=== PATIENT | female | born 1960 | race Caucasian/White ===

== ENCOUNTER 2022-01-08 08:00 | Day surgery (SDC) | payer OTHER, SELFPAY ==
[2022-01-01 09:04] VITALS: BMI 32.5
--- NOTE | 2022-01-04 13:00 | HO.ANESPROP2 ---
Documented by User: Radha Patterson NP 01/04/22 13:02 HPI - Anesthesia Eval Consult details Narrative: 61yo F for Upper Endoscopy and [facility] Past Medical History Medical History (Updated 01/01/22 @ 08:56 by Yvette Shoemaker RN) Arthritis COVID-19 vaccine series completed Elevated cholesterol GERD (gastroesophageal reflux disease) Pre-diabetes Surgical History Surgical History H/O colonoscopy History of esophagogastroduodenoscopy (EGD) Hx of cholecystectomy Hx of foot surgery Hx of tonsillectomy Social History Social History Are you a primary career and technology education teacher to a significant other at home: No Do you presently have visiting nurse or other home services: No Patient Tobacco Use Status: Former Tobacco user Quit Date: 2001 Tobacco use type: Cigarette Use of substances other than those prescribed or required for medical reasons: No Have you been hit, kicked, punched, or otherwise hurt by someone within the past year? If so, by whom?: No Are you DNR?: No Advance Directives Information Provided: Yes (brochure mailed) Advance Directives on File: No Recently lost weight without trying: No Eating poorly because of decreased appetite: No Nutrition Risks: No Nutritional Risk Poor oral hygiene: No Meds Allergies Allergy/AdvReac Type Severity Reaction Status Date / Time codeine AdvReac Intermediate Nausea Verified 01/01/22 08:54 Home Medications Medication Instructions Recorded Confirmed Last Taken Type apple cider vinegar 300 mg tablet 300 mg PO DAILY 01/01/22 01/01/22 Unknown History ascorbic acid (vitamin C) 500 mg 500 mg PO DAILY 01/01/22 01/01/22 Unknown History tablet (Vitamin C) atorvastatin 20 mg tablet 1 tab PO BEDTIME 01/01/22 01/01/22 Unknown History cholecalciferol (vitamin D3) 25 25 mcg PO DAILY 01/01/22 01/01/22 Unknown History mcg (1,000 unit) capsule (Vitamin D3) coenzyme Q10 100 mg capsule 300 mg PO DAILY 01/01/22 01/01/22 Unknown History (CoQ-10) cranberry 400 mg capsule 400 mg PO DAILY 01/01/22 01/01/22 Unknown History lactobacillus comb no.10 20 20,000 mmu cells PO DAILY 01/01/22 01/01/22 Unknown History billion cell capsule (Probiotic) melatonin 5 mg tablet 5 mg PO BEDTIME 01/01/22 01/01/22 Unknown History pantoprazole 40 mg tablet,delayed 1 tab PO BEDTIME 01/01/22 01/01/22 Unknown History release vitamin E 400 unit capsule 400 unit PO DAILY 01/01/22 01/01/22 Unknown History Exam Exam Date and Time: January 04, 2022 1300 Height,Weight and Vital Signs: Height 5 ft 7 in Weight 94.347 kg Assessment and Plan Assessment Anesthesia Assessment: Chart Reviewed Documented by User: Felicia Arriola MD 01/08/22 08:54 [facility] Past Medical History Medical History (Updated 01/01/22 @ 08:56 by Yvette Shoemaker RN) Arthritis COVID-19 vaccine series completed Elevated cholesterol GERD (gastroesophageal reflux disease) Pre-diabetes Functional capacity: independent ambulation Patient : No Family History Family history of problems with anesthesia: No Surgical History Surgical History H/O colonoscopy History of esophagogastroduodenoscopy (EGD) Hx of cholecystectomy Hx of foot surgery Hx of tonsillectomy History of Problems with Anesthesia: No Social History Social History Are you a primary career and technology education teacher to a significant other at home: No Do you presently have visiting nurse or other home services: No Patient Tobacco Use Status: Former Tobacco user Quit Date: 2001 Tobacco use type: Cigarette Use of substances other than those prescribed or required for medical reasons: No Have you been hit, kicked, punched, or otherwise hurt by someone within the past year? If so, by whom?: No Are you DNR?: No Advance Directives Information Provided: Yes (brochure mailed) Advance Directives on File: No Recently lost weight without trying: No Eating poorly because of decreased appetite: No Nutrition Risks: No Nutritional Risk Poor oral hygiene: No Meds Allergies Allergy/AdvReac Type Severity Reaction Status Date / Time codeine AdvReac Intermediate Nausea Verified 01/01/22 08:54 Home Medications Medication Instructions Recorded Confirmed Last Taken Type apple cider vinegar 300 mg tablet 300 mg PO DAILY 01/01/22 01/01/22 Unknown History ascorbic acid (vitamin C) 500 mg 500 mg PO DAILY 01/01/22 01/01/22 Unknown History tablet (Vitamin C) atorvastatin 20 mg tablet 1 tab PO BEDTIME 01/01/22 01/01/22 Unknown History cholecalciferol (vitamin D3) 25 25 mcg PO DAILY 01/01/22 01/01/22 Unknown History mcg (1,000 unit) capsule (Vitamin D3) coenzyme Q10 100 mg capsule 300 mg PO DAILY 01/01/22 01/01/22 Unknown History (CoQ-10) cranberry 400 mg capsule 400 mg PO DAILY 01/01/22 01/01/22 Unknown History lactobacillus comb no.10 20 20,000 mmu cells PO DAILY 01/01/22 01/01/22 Unknown History billion cell capsule (Probiotic) melatonin 5 mg tablet 5 mg PO BEDTIME 01/01/22 01/01/22 Unknown History pantoprazole 40 mg tablet,delayed 1 tab PO BEDTIME 01/01/22 01/01/22 Unknown History release vitamin E 400 unit capsule 400 unit PO DAILY 01/01/22 01/01/22 Unknown History Exam Airway Mallampati Class: II TM Dist: >3cm Neck ROM: Full Heart: RRR Lungs: CTA Assessment and Plan Final Anesthetic Review Family History of Problems with Anesthesia: No History of Problems with Anesthesia: No ASA Class: II Final Preanesthetic Review: No Changes in Pt Med Stat, Meds/Allgs Chart Reviewed, Consent Obtained/Reviewed and Anes Risks/Benef Reviewed Patient Risk: Low Procedure Risk: Low Anesthetic Plan Anesthetic Plan: MAC: Disposition: Standard PACU
[2022-01-08 08:07] VITALS: BP 136/76; PULSE 72; RESP 16; TEMP 36.2; O2SAT 95
[2022-01-08] MEDS: Lactated Ringers 1,000 ML 100 ML IVCONT (08:26)
--- NOTE | 2022-01-08 08:51 | MHC.SHP ---
Pre-Procedural Eval Section A Date of Service: 01/08/22 The patient is an INPATIENT: No Changes since office visit: No Cold of Flu in the past 2 weeks, No New Medical Problems, No Changes in Medication and No Patient answered all questions The History & Physical has been completed within 30 days and I have reviewed it.: Yes Section B Chief Complaint: reflux disease, screening Allergies: Allergies Allergy/AdvReac Type Severity Reaction Status Date / Time codeine AdvReac Intermediate Nausea Verified 01/01/22 08:54 Plan I have reviewed the history and physical and performed a pertinent physical examination on my patient. No changes have occurred unless specified.
[2022-01-08 09:38] VITALS: BP 90/45; PULSE 57; RESP 16; TEMP 36; O2SAT 96
[2022-01-08 09:50] VITALS: BP 116/58; PULSE 56; RESP 18; TEMP 36.2; O2SAT 96
--- NOTE | 2022-01-08 10:25 | OP_ITS ---
SURGEON: Federico Holman MD INDICATIONS: Gastroesophageal reflux disease and colon cancer screening. PREOPERATIVE DIAGNOSIS: POSTOPERATIVE DIAGNOSIS: PROCEDURE PERFORMED: Upper endoscopy with biopsy, colonoscopy to the terminal ileum with biopsy. ESTIMATED BLOOD LOSS: COMPLICATIONS: ANESTHESIA: Monitored anesthesia care. ASSISTANTS: SPECIMENS: DESCRIPTION OF PROCEDURE: History and physical were performed. The risks and benefits of the procedure were explained to the patient. Informed consent was obtained. The patient was placed in the left lateral decubitus position. The Olympus video gastroscope was introduced into the esophagus, stomach, and duodenum. Examination was performed and the scope was removed. She was repositioned for colonoscopy. A digital rectal exam was performed and was found to be normal. The Olympus pediatric video colonoscope was introduced into the rectum and advanced to the cecum without difficulty. The cecum was identified by transillumination, palpation, and identification of ileocecal valve. Examination was performed. The scope was removed. She tolerated the procedure well and was sent to the recovery area in stable condition. FINDINGS: UPPER ENDOSCOPY: Esophagus: The esophagus showed an irregular EG junction with no evidence of esophagitis. Biopsies were obtained from the EG junction. Stomach: The stomach showed no evidence of masses or ulcers. There were multiple benign-appearing gastric polyps in the body and fundus. The largest measured approximately 8 mm. These appeared consistent with fundic gland polyps. Biopsies were obtained from two of the polyps. Antral biopsies were also obtained. Duodenum: The bulb and second portion were normal. COLONOSCOPY: The terminal ileum was examined and appeared normal. The visualized colonic mucosa was normal. There was some undigested food residue and liquid stool, which limited the sensitivity examination for detection of small polyps. Two polyps were identified at 20 cm measuring less than 5 mm. These were removed with biopsy forceps. No other polyps were identified. There was moderate sigmoid diverticulosis. Retroflexed examination showed some small internal hemorrhoids. IMPRESSION: 1. Gastroesophageal reflux disease. 2. Gastric polyps. 3. Colon polyps. RECOMMENDATION: Follow up the biopsy results. MD RAMON Comer/SARAH / [id number]
--- NOTE | 2022-01-08 14:05 | HO.POSTANES ---
Post Anesthesia Evaluation Post Anesthesia Evaluation Vital Signs: Vital Signs Temp Pulse Resp BP Pulse Ox 01/08/22 09:50 97.1 F 56 18 116/58 L 96 01/08/22 09:38 96.8 F 57 16 90/45 L 96 01/08/22 08:07 97.2 F 72 16 136/76 95 Anesthesia: Monitored Mental Status: Awake Pain Control: Satisfactory Nausea/Vomiting: None Hydration: Adequate Anesthesia-Related Issues: No Anes. Related Issues
== END 2022-01-08 10:37 | disposition home or self-care (01) ==
PROVIDERS: PCP Internal Medicine; Visit Provider Internal Medicine Gastroenterology
PROC: (CPT 45380; principal; 2022-01-08 09:00)
DX: Z12.11 Encounter for screening for malignant neoplasm of colon (principal); Z80.0 Family history of malignant neoplasm of digestive organs; K63.5 Polyp of colon; K21.9 Gastro-esophageal reflux disease without esophagitis; K31.7 Polyp of stomach and duodenum; E11.9 Type 2 diabetes mellitus without complications; Z90.49 Acquired absence of other specified parts of digestive tract; Z87.891 Personal history of nicotine dependence; Z79.899 Other long term (current) drug therapy
CPT/HCPCS: 45380; 43239; 88305; 88342

== ENCOUNTER 2022-11-19 07:33 | Day surgery (SDC) | payer OTHER, SELFPAY ==
--- NOTE | 2022-10-17 10:18 | P.CONAN_ITS ---
HPI - Anesthesia Eval Consult details Narrative: 62yo F for Upper Endo with APC s/p egd and colo 12/2021 with [facility] Past Medical History Medical History (Updated 01/01/22 @ 08:56 by Yvette Shoemaker RN) Arthritis COVID-19 vaccine series completed Elevated cholesterol GERD (gastroesophageal reflux disease) Pre-diabetes Family History Family history of problems with anesthesia: No Surgical History Surgical History H/O colonoscopy History of esophagogastroduodenoscopy (EGD) Hx of cholecystectomy Hx of foot surgery Hx of tonsillectomy History of Problems with Anesthesia: No Social History Social History Are you a primary assistant child care teacher to a significant other at home: No Do you presently have visiting nurse or other home services: No Patient Tobacco Use Status: Former Tobacco user Quit Date: 2001 Tobacco use type: Cigarette Meds Allergies Allergy/AdvReac Type Severity Reaction Status Date / Time codeine AdvReac Intermediate Nausea Verified 01/01/22 08:54 Home Medications Medication Instructions Recorded Confirmed Last Taken Type apple cider vinegar 300 mg tablet 300 mg PO DAILY 01/01/22 01/01/22 Unknown History ascorbic acid (vitamin C) 500 mg 500 mg PO DAILY 01/01/22 01/01/22 Unknown History tablet (Vitamin C) atorvastatin 20 mg tablet 1 tab PO BEDTIME 01/01/22 01/01/22 Unknown History cholecalciferol (vitamin D3) 25 25 mcg PO DAILY 01/01/22 01/01/22 Unknown History mcg (1,000 unit) capsule (Vitamin D3) coenzyme Q10 100 mg capsule 300 mg PO DAILY 01/01/22 01/01/22 Unknown History (CoQ-10) cranberry 400 mg capsule 400 mg PO DAILY 01/01/22 01/01/22 Unknown History lactobacillus comb no.10 20 20,000 mmu cells PO DAILY 01/01/22 01/01/22 Unknown History billion cell capsule (Probiotic) melatonin 5 mg tablet 5 mg PO BEDTIME 01/01/22 01/01/22 Unknown History pantoprazole 40 mg tablet,delayed 1 tab PO BEDTIME 01/01/22 01/01/22 Unknown History release vitamin E 268 mg (400 unit) capsule 400 unit PO DAILY 01/01/22 01/01/22 Unknown History Exam Exam Date and Time: October 17, 2022 1018 Assessment and Plan Assessment Anesthesia Assessment: Chart Reviewed Final Anesthetic Review Family History of Problems with Anesthesia: No History of Problems with Anesthesia: No
--- NOTE | 2022-11-15 11:55 | HO.ANESPROP2 ---
Documented by User: Radha Patterson NP 11/15/22 11:56 HPI - Anesthesia Eval Consult details Narrative: 62yo F for Upper Endo with APC [facility] Past Medical History Medical History Antral gastritis Arthritis Colon polyps COVID-19 vaccine series completed Elevated cholesterol GERD (gastroesophageal reflux disease) Pre-diabetes Family History Family history of problems with anesthesia: No Surgical History Surgical History H/O colonoscopy History of esophagogastroduodenoscopy (EGD) Hx of cholecystectomy Hx of foot surgery Hx of tonsillectomy History of Problems with Anesthesia: No Social History Social History Are you a primary childcare center administrator to a significant other at home: No Do you presently have visiting nurse or other home services: No Patient Tobacco Use Status: Former Tobacco user Quit Date: 20 yrs ago Tobacco use type: Cigarette Use of substances other than those prescribed or required for medical reasons: No Are you DNR?: No Advance Directives: No Advance Directives Information Provided: Yes Meds Allergies Allergy/AdvReac Type Severity Reaction Status Date / Time codeine AdvReac Intermediate Nausea Verified 11/19/22 08:14 Home Medications Medication Instructions Recorded Confirmed Last Taken Type apple cider vinegar 300 mg tablet 300 mg PO DAILY 01/01/22 11/19/22 Unknown History ascorbic acid (vitamin C) 500 mg 500 mg PO DAILY 01/01/22 11/19/22 Unknown History tablet (Vitamin C) atorvastatin 20 mg tablet 20 mg PO BEDTIME 01/01/22 11/19/22 Unknown History cholecalciferol (vitamin D3) 25 25 mcg PO DAILY 01/01/22 11/19/22 Unknown History mcg (1,000 unit) capsule (Vitamin D3) coenzyme Q10 100 mg capsule 300 mg PO DAILY 01/01/22 11/19/22 Unknown History (CoQ-10) cranberry 400 mg capsule 400 mg PO DAILY 01/01/22 11/19/22 Unknown History lactobacillus comb no.10 20 20,000 mmu cells PO DAILY 01/01/22 11/19/22 Unknown History billion cell capsule (Probiotic) melatonin 5 mg tablet 5 mg PO BEDTIME 01/01/22 11/19/22 Unknown History pantoprazole 40 mg tablet,delayed 1 tab PO BEDTIME 01/01/22 11/19/22 Unknown History release vitamin E 268 mg (400 unit) capsule 400 unit PO DAILY 01/01/22 11/19/22 Unknown History Exam Exam Date and Time: November 15, 2022 1155 Assessment and Plan Assessment Anesthesia Assessment: Chart Reviewed Final Anesthetic Review Family History of Problems with Anesthesia: No History of Problems with Anesthesia: No Documented by User: Mahad Lerma MD 11/19/22 09:14 [facility] Past Medical History Medical History Antral gastritis Arthritis Colon polyps COVID-19 vaccine series completed Elevated cholesterol GERD (gastroesophageal reflux disease) Pre-diabetes Surgical History Surgical History H/O colonoscopy History of esophagogastroduodenoscopy (EGD) Hx of cholecystectomy Hx of foot surgery Hx of tonsillectomy Social History Social History Are you a primary childcare center administrator to a significant other at home: No Do you presently have visiting nurse or other home services: No Patient Tobacco Use Status: Former Tobacco user Quit Date: 20 yrs ago Tobacco use type: Cigarette Use of substances other than those prescribed or required for medical reasons: No Are you DNR?: No Advance Directives: No Advance Directives Information Provided: Yes Meds Allergies Allergy/AdvReac Type Severity Reaction Status Date / Time codeine AdvReac Intermediate Nausea Verified 11/19/22 08:14 Home Medications Medication Instructions Recorded Confirmed Last Taken Type apple cider vinegar 300 mg tablet 300 mg PO DAILY 01/01/22 11/19/22 Unknown History ascorbic acid (vitamin C) 500 mg 500 mg PO DAILY 01/01/22 11/19/22 Unknown History tablet (Vitamin C) atorvastatin 20 mg tablet 20 mg PO BEDTIME 01/01/22 11/19/22 Unknown History cholecalciferol (vitamin D3) 25 25 mcg PO DAILY 01/01/22 11/19/22 Unknown History mcg (1,000 unit) capsule (Vitamin D3) coenzyme Q10 100 mg capsule 300 mg PO DAILY 01/01/22 11/19/22 Unknown History (CoQ-10) cranberry 400 mg capsule 400 mg PO DAILY 01/01/22 11/19/22 Unknown History lactobacillus comb no.10 20 20,000 mmu cells PO DAILY 01/01/22 11/19/22 Unknown History billion cell capsule (Probiotic) melatonin 5 mg tablet 5 mg PO BEDTIME 01/01/22 11/19/22 Unknown History pantoprazole 40 mg tablet,delayed 1 tab PO BEDTIME 01/01/22 11/19/22 Unknown History release vitamin E 268 mg (400 unit) capsule 400 unit PO DAILY 01/01/22 11/19/22 Unknown History Exam Airway Mallampati Class: II TM Dist: >3cm Neck ROM: Full Loose/Missing/Broken Teeth: No Heart: rrr Lungs: clear Assessment and Plan Final Anesthetic Review NPO: Yes ASA Class: II Final Preanesthetic Review: No Changes in Pt Med Stat, Meds/Allgs Chart Reviewed, Consent Obtained/Reviewed and Anes Risks/Benef Reviewed Patient Risk: Low Procedure Risk: Low Anesthetic Plan Anesthetic Plan: MAC: Disposition: Standard PACU
[2022-11-19 07:54] VITALS: BMI 33.7
[2022-11-19 08:00] VITALS: BP 136/81; PULSE 60; RESP 16; TEMP 36.6; O2SAT 98
--- NOTE | 2022-11-19 08:15 | PC.NURSE ---
pt exposed to a covid positive person on nov 17. tested negative at home this am. no symptoms. anesthesia aware and no need to test here.
[2022-11-19] MEDS: Lactated Ringers 1,000 ML 100 ML IVCONT (08:23)
--- NOTE | 2022-11-19 09:41 | P.BOP_ITS ---
Brief Operative Note Date of Service: 11/19/22 Pre-op diagnosis: gastric intestinal metaplasia Post-op diagnosis: same Procedure: EGD Surgeon: Federico Holman Anesthesia: MAC Was an Marketing Operations Manager used for this Procedure?: No Estimated blood loss (mL): 2 Pathology: other Condition: stable Disposition: PACU
[2022-11-19 09:43] VITALS: BP 132/74; PULSE 57; RESP 14; TEMP 36.2; O2SAT 97
[2022-11-19 09:58] VITALS: BP 135/75; PULSE 58; RESP 16; TEMP 36.2; O2SAT 100
--- NOTE | 2022-11-19 10:07 | OP_ITS ---
SURGEON: Federico Holman MD INDICATIONS: Gastric intestinal metaplasia. PREOPERATIVE DIAGNOSIS: POSTOPERATIVE DIAGNOSIS: PROCEDURE PERFORMED: Upper endoscopy with biopsy. ESTIMATED BLOOD LOSS: COMPLICATIONS: ANESTHESIA: Monitored anesthesia care. ASSISTANTS: SPECIMENS: DESCRIPTION OF PROCEDURE: A history and physical was performed. The risks and benefits of the procedure were explained to the patient. Informed consent was obtained. The patient was placed in the left lateral decubitus position. The Olympus video gastroscope was introduced into the esophagus, stomach, and duodenum. Examination was performed. The scope was removed. She tolerated the procedure well and was taken to recovery in stable condition. The procedure was performed on 11/19/2022. FINDINGS: Esophagus: The esophagus was normal. There was no esophagitis. Stomach: Stomach showed no evidence of masses or ulcers. There were multiple benign-appearing gastric polyps in the fundus, consistent with fundic gland polyps. These had been previously identified at her last endoscopy. One of these did appear to be mildly inflamed and biopsies were obtained from 2 of the polyps, including the inflamed polyp. Biopsies were obtained from the antrum in the lesser curvature and greater curvature, the incisura angularis and the body on the greater curvature and lesser curvature because of her history of gastric intestinal metaplasia. Duodenum, the bulb and second portion were normal. IMPRESSION: 1. Gastric intestinal metaplasia. 2. Gastric polyps. RECOMMENDATIONS: Follow up the biopsy results. MD RAMON Comer/SARAH / [id number]
== END 2022-11-19 10:43 | disposition home or self-care (01) ==
PROVIDERS: PCP Internal Medicine; Visit Provider Internal Medicine Gastroenterology
PROC: 0DJ08ZZ Inspection of Upper Intestinal Tract, Via Natural or Artificial Opening Endoscopic (ICD-10-PCS; CPT 43235; principal; 2022-11-19 09:00)
DX: K31.A0 Gastric intestinal metaplasia, unspecified (principal); K31.7 Polyp of stomach and duodenum; K21.9 Gastro-esophageal reflux disease without esophagitis; E11.9 Type 2 diabetes mellitus without complications; Z79.899 Other long term (current) drug therapy; Z88.8 Allergy status to other drugs, medicaments and biological substances; Z90.49 Acquired absence of other specified parts of digestive tract; Z87.891 Personal history of nicotine dependence
CPT/HCPCS: 43239; 88305; 88342